=== PATIENT | male | born 1980 | race American Indian/Alaskan Native ===

== ENCOUNTER 2022-11-23 12:57 | Emergency (ER) | payer MEDICAID ==
[2022-11-23] MEDS ORDERED: Bacitracin Oint 1 GM U/D Packet TOP ONE (13:21)
[2022-11-23] MEDS ORDERED: Lidocaine 1% 5 ML VIAL INJECT ONE (13:21)
== END 2022-11-23 13:49 | disposition home or self-care (01) ==
LOC: JP.ED 12:57
DX: S61.211A Laceration without foreign body of left index finger without damage to nail, initial encounter (principal); Z72.0 Tobacco use; Z79.899 Other long term (current) drug therapy; W26.0XXA Contact with knife, initial encounter; Y99.0 Civilian activity done for income or pay
CPT/HCPCS: 12001; 99281; 99282